=== PATIENT | female | born 1995 | race African-American/Black ===

== ENCOUNTER 2019-03-01 18:57 | Emergency (ER) | payer OTHER ==
[2019-03-01] MEDS ORDERED: DEXAMETHASONE SOD PHOSPHATE 10 MG/1 ML VIAL IM ONE (19:17)
[2019-03-01] MEDS ORDERED: ALBUTEROL SO4 2.5/IPRATROPIUM 0.5 INH SOL 3 ML VIAL.NEB. NEB ONE ×2 (19:17→19:20)
[2019-03-01 19:19] VITALS: BP 120/61; PULSE 100; TEMP 98.1; BMI 31.5
--- NOTE | 2019-03-01 19:19 | PDOC ---
Rapid Medical Evaluation Chief Complaint: Asthma Time Seen by Provider: 03/01/19 19:17 Medical Evaluation: Allergies Allergy/AdvReac Type Severity Reaction Status Date / Time No Known Allergies Allergy Verified 03/01/19 19:15 03/01/19 19:17 I have performed a brief in-person evaluation of this patient. The patient presents with a chief complaint of: h/o Asthma present with complains of wheezing since this AM which has not been responding home inhaler. Pt report using inhaler 4hrs ago Pertinent physical exam findings: moderate diffused wheezing in NAD. I have ordered the following: duonebmadisynadron IM The patient will proceed to the ED for further evaluation. Discharge Disposition - Diagnosis Asthma Qualifiers: Asthma severity: moderate Asthma persistence: persistent Asthma complication type: with acute exacerbation Qualified Code(s): J45.41 - Moderate persistent asthma with (acute) exacerbation - Discharge Dispostion Condition at time of disposition: Stable - Referrals - Patient Instructions - Post Discharge Activity
--- NOTE | 2019-03-01 20:48 | PDOC ---
History of Present Illness - General Chief Complaint: Asthma Stated Complaint: feeling sick Time Seen by Provider: 03/01/19 19:17 History Source: Patient Exam Limitations: Clinical Condition - History of Present Illness Initial Comments: 03/01/19 20:44 Patient with history of asthma present with complaint of asthma exacerbation with wheezing and chest tightness. Denies any other symptoms. Patient reported using rescue inhaler 4 hours prior to ED visit with minimal improvement. Denies any other symptoms Timing/Duration: getting worse Past History - Past Medical History Allergies/Adverse Reactions: Allergies Allergy/AdvReac Type Severity Reaction Status Date / Time No Known Allergies Allergy Verified 03/01/19 19:15 Home Medications: Ambulatory Orders Montelukast Sodium [Singulair] 10 mg PO DAILY #7 tablet 03/01/19 predniSONE [Deltasone -] 20 mg PO BID 5 Days #10 tablet 03/01/19 Asthma: Yes COPD: No - Suicide/Smoking/Psychosocial Hx Smoking History: Never smoked Review of Systems - Review of Systems Able to Perform ROS?: Yes Is the patient limited Albanian proficient: No Constitutional: No: Fever, Malaise HEENTM: No: Symptoms Reported, See HPI, Eye Pain, Blurred Vision, Tearing, Recent change in vision, Double Vision, Cataracts, Ear Pain, Ocular Prothesis, Ear Discharge, Nose Pain, Nose Congestion, Tinnitus, Nose Bleeding, Hearing Loss , Throat Pain, Throat Swelling, Mouth Pain, Dental Problems, Difficulty Swallowing, Mouth Swelling, Other Respiratory: Yes: Symptoms reported, See HPI, Shortness of Breath, SOB with Exertion, SOB at Rest, Wheezing. No: Cough, Orthopnea, Stridor, Productive cough, Hemoptysis, Other Cardiac (ROS): No: Symptoms Reported, See HPI, Chest Pain, Edema, Irregular Heart Rate, Lightheadedness, Palpitations, Syncope, Chest Tightness, Other ABD/GI: No: Nausea, Vomiting Integumentary: No: Symptoms Reported All Other Systems: Reviewed and Negative *Physical Exam - Vital Signs Last Vital Signs Temp Pulse Resp BP Pulse Ox 98.1 F 100 H 20 120/61 98 03/01/19 19:17 03/01/19 19:17 03/01/19 19:17 03/01/19 19:17 03/01/19 19:17 - Physical Exam Comments: 05/20/19 20:46 GENERAL: Well developed, well nourished. Awake and alert. No acute distress. HEENT: Normocephalic, atraumatic. PERRLA, EOMI. No conjunctival pallor. Sclera are non-icteric. Moist mucous membranes. Oropharynx is clear. NECK: Supple. Full ROM. CARDIOVASCULAR: Regular rate and rhythm. No murmurs, rubs, or gallops. Distal pulses are 2+ and symmetric. PULMONARY: No evidence of respiratory distress. Moderate diffuse wheezing, No rales or rhonchi. ABDOMINAL: Soft. Non-tender. Non-distended. No rebound or guarding. No organomegaly. Normoactive bowel sounds. MUSCULOSKELETAL Normal range of motion at all joints. EXTREMITIES: No cyanosis. No clubbing. No edema. SKIN: Warm and dry. Normal capillary refill. No rashes. No jaundice. NEUROLOGICAL: Alert, awake, appropriate. Gait is normal without ataxia. PSYCHIATRIC: Cooperative. Good eye contact. Appropriate mood General Appearance: Yes: Nourished, Appropriately Dressed, Mild Distress ED Treatment Course - Medications Given in the ED: ED Medications Discontinued Medications Generic Name Dose Route Start Last Admin Trade Name Freq PRN Reason Stop Dose Admin Albuterol/Ipratropium 2 amp 03/01/19 19:17 03/01/19 19:23 Duoneb - NEB 03/01/19 19:18 2 amp ONCE ONE Administration Medical Decision Making - Medical Decision Making 03/01/19 20:47 Patient with history of asthma present with complaint of asthma exacerbation with wheezing and chest tightness. Denies any other symptoms. Patient reported using rescue inhaler 4 hours prior to ED visit with minimal improvement. Denies any other symptoms Exam significant for moderate diffuse wheezing without respiratory distress. Nebulizer treatment with DuoNeb with albuterol and Atrovent given 03/01/19 20:51 Patient reported improved symptoms after nebulizer treatment. Improved wheezing posttreatment. Patient is stable for discharge on by mouth prednisone for 4 days and antihistamine with PCP follow-up. *DC/Admit/Observation/Transfer Diagnosis at time of Disposition: Asthma Qualifiers: Asthma severity: moderate Asthma persistence: persistent Asthma complication type: with acute exacerbation Qualified Code(s): J45.41 - Moderate persistent asthma with (acute) exacerbation - Discharge Dispostion Disposition: HOME Condition at time of disposition: Stable Decision to Admit order: No - Prescriptions Prescriptions: Montelukast Sodium [Singulair] 10 mg PO DAILY #7 tablet predniSONE [Deltasone -] 20 mg PO BID 5 Days #10 tablet - Referrals - Patient Instructions Printed Discharge Instructions: Asthma -- Adult Additional Instructions: Take medications as prescribed. Follow-up with PCP - Post Discharge Activity Forms/Work/School Notes: Back to Work
[2019-03-01] MEDS ORDERED: DEXAMETHASONE SOD PHOSPHATE 10 MG/1 ML VIAL ONE (21:18)
== END 2019-03-01 21:23 | disposition home or self-care (01) ==
LOC: JERFT 18:57
PROC: 3E0F7GC Introduction of Other Therapeutic Substance into Respiratory Tract, Via Natural or Artificial Opening (ICD-10-PCS; principal; 2019-03-01)
PROC: 3E0233Z Introduction of Anti-inflammatory into Muscle, Percutaneous Approach (ICD-10-PCS; 2019-03-01)
DX: J45.41 Moderate persistent asthma with (acute) exacerbation (principal)
CPT/HCPCS: 94640; 96372; 99281-25; J1100

== ENCOUNTER 2021-01-30 00:52 | Inpatient (IN) | payer OTHER ==
[2021-01-30] MEDS ORDERED: predniSONE 20 MG TABLET (UD) PO ONE (01:25)
[2021-01-30] MEDS ORDERED: ALBUTEROL SO4 2.5/IPRATROPIUM 0.5 INH SOL 3 ML VIAL.NEB. NEB ONE ×2 (01:31→12:13)
[2021-01-30] MEDS ORDERED: predniSONE 20 MG TABLET (UD) ONE (01:43)
[2021-01-30] MEDS: ALBUTEROL SO4 2.5/IPRATROPIUM 0.5 INH SOL 3 ML VIAL.NEB. NEB SCH ×5 (01:49→21:00)
[2021-01-30] MEDS ORDERED: MAGNESIUM SULFATE IN WATER 2 GM/50 ML IVPB IVPB ONE (02:49)
[2021-01-30] MEDS ORDERED: ALBUTEROL SO4 0.083% IH SOL 2.5 MG/3 ML VIAL.NEB. NEB ONE (02:49)
[2021-01-30] MEDS: ALBUTEROL SO4 0.083% IH SOL 2.5 MG/3 ML VIAL.NEB. NEB SCH ×4 (03:05→03:34)
[2021-01-30] MEDS: MAGNESIUM SULF 50% (8.12 MEQ/2 ML-1 GM VIAL) IVPB ONE ×2 (03:05→03:34)
[2021-01-30 03:16] LABS: BASO % 0.8 % (0-2.0); EOS % 3.6 % (0-4.5); HEMATOCRIT 39.5 % (32.4-45.2); HEMOGLOBIN 12.9 GM/dL (10.7-15.3); LYMPH % 8.3 % (8-40); MCH 26.6 pg (25.7-33.7); MCHC 32.6 g/dl (32.0-36.0); MEAN CELL VOLUME 81.7 fl (80-96); MEAN PLT VOLUME 8.7 fl (7.5-11.1); MONO % 6.2 % (3.8-10.2); NEUT % 81.1 % (42.8-82.8); PLATELET COUNT 381 K/MM3 (134-434); RBC 4.83 M/mm3 (3.60-5.2); RDW 16.4 % (11.6-15.6); WHITE BLOOD COUNT 21.1 K/mm3 (4.0-10.0)
[2021-01-30 03:29] LABS: ALBUMIN 3.7 g/dl (3.4-5.0); CALCIUM 9.3 mg/dL (8.5-10.1); MAGNESIUM 2.2 mg/dL (1.8-2.4)
[2021-01-30 03:30] LABS: BLOOD UREA NITROGEN 8.7 mg/dL (7-18)
[2021-01-30 03:32] LABS: CREATININE 0.7 mg/dL (0.55-1.3)
[2021-01-30] MEDS ORDERED: MAGNESIUM SULF 50% (8.12 MEQ/2 ML-1 GM VIAL) IVPB ONE (03:33)
[2021-01-30 03:34] LABS: BILIRUBIN,TOTAL 0.3 mg/dL (0.2-1); TOT PROT 7.8 g/dl (6.4-8.2)
[2021-01-30] MEDS ORDERED: TERBUTALINE SULFATE 1 MG/1 ML VIAL SQ ONE ×2 (03:43→03:55)
[2021-01-30 05:14] LABS: ANISOCYTOSIS 1+; MACROCYTOSIS 1+; PLATELET ESTIMATE NORMAL
[2021-01-30] MEDS ORDERED: ALBUTEROL SO4 HFA INHALER IH PRN (05:39)
[2021-01-30] MEDS ORDERED: ALBUTEROL SO4 0.083% IH SOL 2.5 MG/3 ML VIAL.NEB. NEB SCH ×2 (06:01→08:00)
[2021-01-30] MEDS ORDERED: ALBUTEROL SO4 0.083% IH SOL 2.5 MG/3 ML VIAL.NEB. NEB PRN (10:56)
[2021-01-30 11:03] LABS: BASO % 0.4 % (0-2.0); EOS % 0.5 % (0-4.5); HEMATOCRIT 39.7 % (32.4-45.2); HEMOGLOBIN 13.2 GM/dL (10.7-15.3); LYMPH % 4.6 % (8-40); MCHC 33.2 g/dl (32.0-36.0); MEAN CELL VOLUME 81.3 fl (80-96); MEAN PLT VOLUME 8.4 fl (7.5-11.1); MONO % 1.3 % (3.8-10.2); NEUT % 93.2 % (42.8-82.8); PLATELET COUNT 413 K/MM3 (134-434); RBC 4.88 M/mm3 (3.60-5.2); RDW 16.8 % (11.6-15.6); WHITE BLOOD COUNT 15.1 K/mm3 (4.0-10.0)
[2021-01-30 11:24] LABS: ALBUMIN 3.8 g/dl (3.4-5.0); BLOOD UREA NITROGEN 7.7 mg/dL (7-18); MAGNESIUM 2.8 mg/dL (1.8-2.4)
[2021-01-30 11:26] LABS: CREATININE 0.8 mg/dL (0.55-1.3)
[2021-01-30 11:27] LABS: PHOSPHOROUS 3.2 mg/dL (2.5-4.9)
[2021-01-30 11:28] LABS: BILIRUBIN,TOTAL 0.3 mg/dL (0.2-1); TOT PROT 8.2 g/dl (6.4-8.2)
[2021-01-30] MEDS ORDERED: ENOXAPARIN NA (PORCINE) 40 MG/0.4 ML DISP.SYRIN SQ ONE (12:13)
[2021-01-30] MEDS ORDERED: methylPREDNISolone NA SUCC 40 MG/1 ML VIAL ONE (12:13)
[2021-01-30] MEDS: ENOXAPARIN NA (PORCINE) 40 MG/0.4 ML DISP.SYRIN SQ SCH (12:20)
[2021-01-30] MEDS: methylPREDNISolone NA SUCC 40 MG/1 ML VIAL IVPUSH SCH ×2 (12:20→18:19)
[2021-01-30 12:22] LABS: ANISOCYTOSIS 0; HELMET CELLS 0; HOWELL-JOLLY BODIES 0; MACROCYTOSIS 0; OVALOCYTE 0; PLATELET ESTIMATE NORMAL; ROULEAU 0; SICKELED CELLS 0; TARGET CELLS 0; TEAR DROP CELLS 0; TOXIC GRANULATION 0
[2021-01-30 14:00] VITALS: BMI 38.1
[2021-01-30] MEDS ORDERED: predniSONE 20 MG TABLET (UD) PO SCH (15:00)
[2021-01-31] MEDS: methylPREDNISolone NA SUCC 40 MG/1 ML VIAL IVPUSH SCH (02:34)
[2021-01-31] MEDS: ALBUTEROL SO4 2.5/IPRATROPIUM 0.5 INH SOL 3 ML VIAL.NEB. NEB SCH ×3 (08:15→16:15)
[2021-01-31] MEDS: ENOXAPARIN NA (PORCINE) 40 MG/0.4 ML DISP.SYRIN SQ SCH (09:15)
[2021-01-31] MEDS ORDERED: methylPREDNISolone NA SUCC 40 MG/1 ML VIAL IVPUSH ONE ×2 (09:41→16:00)
[2021-01-31 09:46] LABS: HEMATOCRIT 41.7 % (32.4-45.2); HEMOGLOBIN 13.8 GM/dL (10.7-15.3); MCH 27.2 pg (25.7-33.7); MCHC 33.1 g/dl (32.0-36.0); MEAN CELL VOLUME 82.2 fl (80-96); MEAN PLT VOLUME 9.2 fl (7.5-11.1); PLATELET COUNT 455 K/MM3 (134-434); RBC 5.08 M/mm3 (3.60-5.2); RDW 16.9 % (11.6-15.6); WHITE BLOOD COUNT 27.9 K/mm3 (4.0-10.0)
[2021-01-31 13:33] VITALS: BP 135/82; PULSE 99; TEMP 98
== END 2021-01-31 17:54 | disposition home or self-care (01) | DRG 141 ==
LOC: JER 00:52 → JERBED 03:46 → J6S 12:44
PROVIDERS: ADMIT Hospitalist; ATTEND Internal Medicine
DX: J45.21 Mild intermittent asthma with (acute) exacerbation (principal); E66.01 Morbid (severe) obesity due to excess calories; Z68.38 Body mass index [BMI] 38.0-38.9, adult; D72.829 Elevated white blood cell count, unspecified; R00.0 Tachycardia, unspecified
CPT/HCPCS: 36415; 71046-TC-FY; 80053; 83735; 84100; 84703; 85025; 85027; 93005; 93010; 94150; 94640; 99285-25; C9803; U0003; U0005